=== PATIENT | male | born 2000 | race Caucasian/White ===

== ENCOUNTER 2022-11-01 07:57 | Emergency (ER) | payer OTHER ==
[2022-11-01 08:25] VITALS: BP 142/87; PULSE 75; RESP 20; TEMP 98.9
== END 2022-11-01 09:19 | disposition home or self-care (01) ==
LOC: FER 07:57
DX: S93.401A Sprain of unspecified ligament of right ankle, initial encounter (principal); V85.4XXA Person injured while boarding or alighting from special construction vehicle, initial encounter; X50.0XXA Overexertion from strenuous movement or load, initial encounter
CPT/HCPCS: 73610-TC-RT-FY; 73630-TC-RT-FY; 99283-25